=== PATIENT | male | born 1995 | race Caucasian/White ===

== ENCOUNTER 2022-07-17 17:56 | Emergency (ER) | payer OTHER ==
[2022-07-17] MEDS ORDERED: ZOFRAN ODT 4 MG4 MG PO (21:00)
== END 2022-07-17 21:23 | disposition home or self-care (01) ==
LOC: ER1 17:56
DX: B34.9 Viral infection, unspecified (principal); Z20.822 Contact with and (suspected) exposure to COVID-19
CPT/HCPCS: 99284; U0002